=== PATIENT | female | born 1965 | race Caucasian/White ===

== ENCOUNTER → 2016-12-20 | Outpatient (CLI) | payer OTHER ==
--- NOTE | 2016-12-20 15:11 | US ---
EXAMINATION TYPE: US venous doppler duplex LE LT DATE OF EXAM: 12/20/2016 2:15 PM COMPARISON: NONE CLINICAL HISTORY: M79.662 PAIN LLE, R22.42 SWELLING LLE. SIDE PERFORMED: Left Grayscale, color Doppler, spectral Doppler imaging performed of the deep veins of the left lower extr emity. There is normal compressibility of the visualized deep veins of the left lower extremity, vasc ular waveforms are within normal limits, there is color flow. TECHNOLOGIST IMPRESSION: Morbidly obese patient with severe leg pain Left Leg: Negative for DVT exam somewhat limited due to obesity. IMPRESSION: No deep venous thrombosis is evident, the exam could be somewhat limited by patient body habitus, follow-up as indicated.
== END ==
LOC: RADUSWWP 13:39
PROVIDERS: ATTEND Internal Medicine
DX: M79.662 Pain in left lower leg (principal); M79.89 Other specified soft tissue disorders

== ENCOUNTER → 2018-10-08 | Outpatient (CLI) | payer OTHER ==
--- NOTE | 2018-10-08 10:53 | CT ---
EXAMINATION TYPE: CT abdomen wo con DATE OF EXAM: 10/08/2018 HISTORY: Left sided generalized abdominal pain CT DLP: 1306.8 mGycm. Automated Exposure Control for Dose Reduction was Utilized. TECHNIQUE: CT scan of the abdomen is performed with oral but without IV contrast. COMPARISON: NONE FINDINGS: Within the limitations of a non-contrast study, the following observations are made. LUNG BASES: No significant abnormality is appreciated. LIVER/GB: Liver is low dense relative to spleen consistent with diffuse fatty infiltration. PANCREAS: No significant abnormality is seen. SPLEEN: No significant abnormality is seen. ADRENALS: No significant abnormality is seen. KIDNEYS: There is 1.5 cm exophytic simple appearing cyst anterolaterally mid to lower pole level righ t kidney axial image 38. BOWEL: Oral contrast does not reach colonic level. There is no suspicious small or large bowel dilata tion LYMPH NODES: No greater than 1cm abdominal lymph nodes are appreciated. OSSEOUS STRUCTURES: Some facet arthropathy in visualized lower lumbar spine is seen. OTHER: There is mild to moderate calcified plaque of the distal abdominal aorta extending to iliac br anch vessels. There is tiny fat-containing right periumbilical hernia axial image 51. IMPRESSION: No renal stones or hydronephrosis is seen bilaterally. No suspicious acute findings seen on noncontrast CT to account for patient's symptoms.
== END ==
LOC: RADCTMAIN 08:17
PROVIDERS: ATTEND Family Medicine
DX: R10.84 Generalized abdominal pain (principal); Z91.040 Latex allergy status
CPT/HCPCS: 74150

== ENCOUNTER 2019-04-03 12:13 | Inpatient (IN) | payer OTHER ==
[2019-04-03] MEDS ORDERED: methylPREDNISolone SOD SUCCI 125 MG/2 ML VIAL IV STA (14:01)
[2019-04-03] MEDS ORDERED: IPRATROPIUM-ALBUTEROL 3 ML NEB INHALATION PRN (14:01)
[2019-04-03] MEDS ORDERED: LORazepam 1 MG TAB PO PRN (14:08)
[2019-04-03] MEDS ORDERED: DICYCLOMINE 10 MG CAP PO PRN (14:08)
[2019-04-03] MEDS: SODIUM CHLORIDE 0.9% 1,000 ML IV SCH (14:16)
[2019-04-03] MEDS: AZITHROMYCIN 500 MG TAB PO SCH (14:30)
[2019-04-03] MEDS: LISINOPRIL 10 MG TAB PO SCH ×2 (14:30→14:54)
[2019-04-03] MEDS: DULoxetine HCL 60 MG CAPSULE.DR PO SCH ×2 (14:30→14:53)
[2019-04-03] MEDS: LINAGLIPTIN 5 MG TABLET PO SCH (14:54)
[2019-04-03] MEDS: INSULIN ASPART (NovoLOG) 100 UNIT/ML VIAL SQ SCH ×3 (14:55→21:47)
[2019-04-03 15:07] VITALS: BMI 49.0
[2019-04-03] MEDS ORDERED: PNEUMOCOCCAL VACC-PNEUMOVAX 23 25 MCG/0.5 ML VIAL IM ONE (15:10)
[2019-04-03] MEDS: IPRATROPIUM-ALBUTEROL 3 ML NEB INHALATION SCH ×2 (15:27→21:09)
[2019-04-03 16:59] LABS: Glucose,Whole Blood 195 mg/dL (75-99)
[2019-04-03] MEDS: metFORMIN 500 MG TAB PO SCH (17:04)
[2019-04-03] MEDS: methylPREDNISolone SOD SUCCI 125 MG/2 ML VIAL IV SCH (17:29)
[2019-04-03] MEDS ORDERED: SYMBICORT 160-4.5 MCG INHALER INHALATION SCH (20:00)
[2019-04-03 20:39] LABS: Basophils # (A) 0.1 k/uL (0-0.2); Basophils % (A) 0 %; Eosinophils % (A) 0 %; HCT 38.4 % (34.0-46.0); HGB 12.8 gm/dL (11.4-16.0); Lymphocytes # (A) 0.7 k/uL (1.0-4.8); Lymphocytes % (A) 5 %; MCH 30.7 pg (25.0-35.0); MCHC 33.4 g/dL (31.0-37.0); MCV 91.9 fL (80.0-100.0); Mean Platelet Volume 8.8; Monocytes # (A) 0.4 k/uL (0-1.0); Monocytes % (A) 3 %; Neutrophils # (A) 13.1 k/uL (1.3-7.7); Neutrophils % (A) 92 %; Platelet Count 209 k/uL (150-450); RBC 4.18 m/uL (3.80-5.40); RDW 14.1 % (11.5-15.5); WBC 14.3 k/uL (3.8-10.6)
[2019-04-03 20:52] LABS: Calcium 9.6 mg/dL (8.4-10.2); Potassium 4.4 mmol/L (3.5-5.1)
[2019-04-03] MEDS: BUDESONIDE 0.5 MG/2 ML NEBU INHALATION PRN (21:10)
[2019-04-03 21:17] LABS: Glucose,Whole Blood 341 mg/dL (75-99)
[2019-04-03] MEDS: ATORVASTATIN 10 MG TAB PO SCH (21:47)
[2019-04-03] MEDS: FAMOTIDINE 20 MG TAB PO SCH (21:47)
[2019-04-03] MEDS: buPROPion XL 150 MG TAB.ER.24H PO SCH (21:47)
[2019-04-04] MEDS ORDERED: ACETAMINOPHEN TAB 325 MG TAB PO PRN (05:14)
[2019-04-04] MEDS: LISINOPRIL 10 MG TAB PO SCH (05:27)
[2019-04-04] MEDS: methylPREDNISolone SOD SUCCI 125 MG/2 ML VIAL IV SCH ×5 (05:36→23:18)
[2019-04-04 07:20] LABS: Glucose,Whole Blood 278 mg/dL (75-99)
[2019-04-04] MEDS: IPRATROPIUM-ALBUTEROL 3 ML NEB INHALATION SCH ×4 (07:36→20:48)
[2019-04-04] MEDS: BUDESONIDE 0.5 MG/2 ML NEBU INHALATION PRN (07:36)
[2019-04-04] MEDS: buPROPion XL 150 MG TAB.ER.24H PO SCH ×2 (08:01→19:53)
[2019-04-04] MEDS: NICOTINE 21MG/24HR PATCH TRANSDERM SCH (08:01)
[2019-04-04] MEDS: INSULIN ASPART (NovoLOG) 100 UNIT/ML VIAL SQ SCH ×4 (08:01→22:03)
[2019-04-04] MEDS: FAMOTIDINE 20 MG TAB PO SCH ×2 (08:02→19:53)
[2019-04-04] MEDS: AZITHROMYCIN 500 MG TAB PO SCH (08:02)
[2019-04-04] MEDS: LINAGLIPTIN 5 MG TABLET PO SCH (08:02)
[2019-04-04] MEDS: metFORMIN 500 MG TAB PO SCH ×2 (08:02→17:50)
[2019-04-04] MEDS: DULoxetine HCL 60 MG CAPSULE.DR PO SCH (08:02)
[2019-04-04 10:24] LABS: Basophils # (A) 0.1 k/uL (0-0.2); Basophils % (A) 0 %; Eosinophils % (A) 0 %; HCT 39.9 % (34.0-46.0); Lymphocytes # (A) 1.3 k/uL (1.0-4.8); Lymphocytes % (A) 6 %; MCH 30.3 pg (25.0-35.0); MCHC 32.6 g/dL (31.0-37.0); MCV 92.9 fL (80.0-100.0); Mean Platelet Volume 9.3; Monocytes # (A) 0.4 k/uL (0-1.0); Monocytes % (A) 2 %; Neutrophils % (A) 91 %; Platelet Count 253 k/uL (150-450); RDW 14.1 % (11.5-15.5); WBC 21.8 k/uL (3.8-10.6)
[2019-04-04 10:43] LABS: Calcium 9.8 mg/dL (8.4-10.2); Potassium 4.4 mmol/L (3.5-5.1)
[2019-04-04 11:57] LABS: Glucose,Whole Blood 305 mg/dL (75-99)
--- NOTE | 2019-04-04 13:02 | P.HPIM ---
History of Present Illness H&P Date: 04/03/19 Chief Complaint: Worsening shortness of breath This is a 53-year-old female with history of COPD, diabetes mellitus, gastroesophageal reflux disease, hypertension, hyperlipidemia, osteoarthritis, diabetes mellitus, neuropathy with gait dysfunction, chronic back pain, anxiety, depression, ongoing nicotine dependence, admitted directly from PCPs office related to acute COPD exacerbation, failed outpatient treatment. Patient had followed up with PCP last week received prescriptions for antibiotics as well as prednisone taper. Pharmacy did not have prednisone available until Monday. Breathing continue to worsen, returned to PCPs office received IM Rocephin and Depo-Medrol. Worsening of respiratory status, patient was directly admitted to hospital. On admission, afebrile, maintaining O2 sats of 95% on room air, shallow breathing, VSS. Denies chest pain, palpitations. Denies fever or chills. Denies lightheadedness dizziness or focal deficits. Denies nausea, vomiting or diarrhea. Denies abdominal pain. IV antibiotics of Rocephin, Zithromax initiated in addition to Nebulized bronchodilators, Pulmicort, IV steroids, insulin sliding scale as well as home med regimen. Review of Systems ROS Statement: Those systems with pertinent positive or pertinent negative responses have been documented in the HPI. ROS Other: All systems not noted in ROS Statement are negative. Past Medical History - Past Family History Father Family Medical History: Diabetes Mellitus Mother Additional Family Medical History / Comment(s): Mother of "broken heart". Medications and Allergies Home Medications Medication Instructions Recorded Confirmed Type Budesonide [Pulmicort] 0.5 mg INHALATION RT-BID PRN 04/03/19 04/03/19 History Clarithromycin [Biaxin] 500 mg PO BID 04/03/19 04/03/19 History DULoxetine HCL [Cymbalta] 60 mg PO DAILY 04/03/19 04/03/19 History Dicyclomine [Bentyl] 10 mg PO ACHS PRN 04/03/19 04/03/19 History Ipratropium-Albuterol Nebulize 3 ml INHALATION RT-QID PRN 04/03/19 04/03/19 History [Duoneb 0.5 mg-3 mg/3 ml Soln] LORazepam [Ativan] 1 mg PO DAILY PRN 04/03/19 04/03/19 History Lisinopril [Zestril] 10 mg PO DAILY 04/03/19 04/03/19 History Ranitidine HCl 150 mg PO BID 04/03/19 04/03/19 History Simvastatin [Zocor] 20 mg PO HS 04/03/19 04/03/19 History buPROPion XL [Wellbutrin Xl] 150 mg PO BID 04/03/19 04/03/19 History metFORMIN HCL [Glucophage] 500 mg PO BID 04/03/19 04/03/19 History predniSONE 5 mg PO DAILY 04/03/19 04/03/19 History sitaGLIPtin [Januvia] 100 mg PO DAILY 04/03/19 04/03/19 History Allergies Allergy/AdvReac Type Severity Reaction Status Date / Time Latex, Natural Rubber Allergy Anaphylaxis Verified 04/03/19 13:44 Physical Exam Vitals: Intake and Output 04/02/19 04/03/19 04/03/19 22:59 06:59 14:59 Other: Weight 133.6 kg PHYSICAL EXAM: VITAL SIGNS: As above GENERAL: Sitting up in bed, alert and oriented 3, respiratory effort increased HEENT: Conjunctivae normal. eyes normal. Oral mucosa moist NECK: No JVD. No thyroid enlargement. No LNs CARDIOVASCULAR: S1, S2 regular.. No murmur RESPIRATION: Breath sounds diminished in the bases. Scattered rhonchi with fine crackles. Prolonged expiratory wheezing ABDOMEN: Soft, nontender . No guarding. no masses palpable. Bowel sounds heard. LEGS: No edema. no swelling PSYCHIATRY: Alert and oriented X3, mood and affect normal. NERVOUS SYSTEM: Cranial N 2-12 grossly normal. Moves all 4 limbs. Diffuse weakness ,No focal deficits. Strength and sensation grossly intact.. Skin: no lesions, no rash Lymphatic system. No LN neck axilla or groin. Results CBC & Chem 7: 04/04/19 09:32 04/04/19 09:32 Assessment and Plan Assessment: -Acute COPD exacerbation, failed outpatient treatment -Ongoing nicotine dependence -Gastroesophageal reflux disease -Hyperlipidemia -Hypertension -Diabetes mellitus -Chronic back pain -Degenerative joint disease, uses cane and walker -Anxiety, depression Plan: Continue on current medication regime ,monitoring and symptomatic treatment. Nebulized bronchodilators, Pulmicort, IV steroids, IV antibiotics initiated. Close monitoring of Accu-Cheks. Home meds have been resumed. Sputum culture ordered. Smoking cessation readdressed. GI and DVT prophylaxis ordered. Further recommendations to follow The impression and plan of care has been dictated as directed. : I performed a history and examination of this patient, discussed the same with the dictator. I agree with the dictator's note ,documented as a scribe. Any additional findings or plans will be noted. Intake and: 35 minutes
[2019-04-04] MEDS: INSULIN DETEMIR (LEVEMIR) 100 UNIT/ML SYR SQ SCH (13:03)
--- NOTE | 2019-04-04 13:12 | P.PN ---
Subjective Progress Note Date: 04/04/19 This is a 53-year-old female with history of COPD, diabetes mellitus, gastroesophageal reflux disease, hypertension, hyperlipidemia, osteoarthritis, diabetes mellitus, neuropathy with gait dysfunction, chronic back pain, anxiety, depression, ongoing nicotine dependence, admitted directly from PCPs office r elated to acute COPD exacerbation, failed outpatient treatment. Patient had followed up with PCP last week received prescriptions for antibiotics as well as prednisone taper. Pharmacy did not have prednisone available until Monday. Breathing continue to worsen, returned to PCPs office received IM Rocephin and Depo-Medrol. Worsening of respiratory status, patient was directly admitted to hospital. On admission, afebrile, maintaining O2 sats of 95% on room air, shallow breathing, VSS. Denies chest pain, palpitations. Denies fever or chills. Denies lightheadedness dizziness or focal deficits. Denies nausea, vomiting or diarrhea. Denies abdominal pain. IV antibiotics of Rocephin, Zith romax initiated in addition to Nebulized bronchodilators, Pulmicort, IV steroids, insulin sliding scale as well as home med regimen. 04/04/19 maintained on nebulized bronchodilators, IV steroids and IV antibiotics. Blood sugars [id number]. Occasional nonproductive cough .Sputum culture currently, moderate gram-positive cocci in chains. Afebrile, WBC 21.8. Maintaining O2 sats in the mid 90s on room air. Creatinine down to 1.03. Denies chest pain, palpitations. Objective - Vital Signs Vital signs: Vital Signs Temp 98.2 F 04/04/19 05:10 Pulse 99 04/04/19 11:38 Resp 18 04/04/19 05:10 BP 153/93 04/04/19 05:10 Pulse Ox 95 04/04/19 05:10 Intake & Output 04/03/19 04/04/19 04/04/19 18:59 06:59 18:59 Weight 133.6 kg Other: Voiding Method Toilet # Voids 1 1 - Exam VITAL SIGNS: As above GENERAL: Sitting up in bed, alert and oriented 3, respiratory effort increased HEENT: Conjunctivae normal. eyes normal. Oral mucosa moist NECK: No JVD. No thyroid enlargement. No LNs CARDIOVASCULAR: S1, S2 regular.. No murmur RESPIRATION: Breath sounds diminished in the bases. Scattered rhonchi with improving expiratory wheezing ABDOMEN: Soft, nontender . No guarding. no masses palpable. Bowel sounds heard. LEGS: No edema. no swelling PSYCHIATRY: Alert and oriented X3, mood and affect normal. NERVOUS SYSTEM: Cranial N 2-12 grossly normal. Moves all 4 limbs. Diffuse weakness ,No focal deficits. Strength and sensation grossly intact.. Skin: no lesions, no rash - Labs CBC & Chem 7: 04/04/19 09:32 04/04/19 09:32 Labs: Abnormal Lab Results - Last 24 Hours (Table) 04/03/19 04/03/19 04/03/19 Range/Units 16:52 20:29 20:29 WBC 14.3 H (3.8-10.6) k/uL Neutrophils # 13.1 H (1.3-7.7) k/uL Lymphocytes # 0.7 L (1.0-4.8) k/uL Sodium 136 L (137-145) mmol/L Carbon Dioxide (22-30) mmol/L BUN 19 H (7-17) mg/dL Creatinine 1.14 H (0.52-1.04) mg/dL Glucose 330 H (74-99) mg/dL POC Glucose (mg/dL) 195 H (75-99) mg/dL 04/03/19 04/04/19 04/04/19 Range/Units 20:34 07:06 09:32 WBC 21.8 H (3.8-10.6) k/uL Neutrophils # 20.0 H (1.3-7.7) k/uL Lymphocytes # (1.0-4.8) k/uL Sodium (137-145) mmol/L Carbon Dioxide (22-30) mmol/L BUN (7-17) mg/dL Creatinine (0.52-1.04) mg/dL Glucose (74-99) mg/dL POC Glucose (mg/dL) 341 H 278 H (75-99) mg/dL 04/04/19 04/04/19 Range/Units 09:32 11:44 WBC (3.8-10.6) k/uL Neutrophils # (1.3-7.7) k/uL Lymphocytes # (1.0-4.8) k/uL Sodium 136 L (137-145) mmol/L Carbon Dioxide 19 L (22-30) mmol/L BUN 21 H (7-17) mg/dL Creatinine (0.52-1.04) mg/dL Glucose 353 H (74-99) mg/dL POC Glucose (mg/dL) 305 H (75-99) mg/dL Microbiology - Last 24 Hours (Table) 04/03/19 21:18 Sputum Culture - Preliminary Sputum Assessment and Plan Assessment: -Acute COPD exacerbation, failed outpatient treatment. Sputum culture currently, moderate gram-positive cocci in chains -Ongoing nicotine dependence -Gastroesophageal reflux disease -Hyperlipidemia -Hypertension -Diabetes mellitus -Chronic back pain -Degenerative joint disease, uses cane and walker -Anxiety, depression Plan: Continue on current medication regime ,monitoring and symptomatic treatment. Maintain Nebulized bronchodilators, Pulmicort, IV steroids, IV antibiotics. Long actin insulin added to med. regime with close monitoring of Accu-Cheks.Final Sputum culture results pending. Smoking cessation readdressed. Aggressive pulmonary toileting. Increased stimulation as tolerated. The impression and plan of care has been dictated as directed. : I performed a history and examination of this patient, discussed the same with the dictator. I agree with the dictator's note ,documented as a scribe. Any additional findings or plans will be noted. Intake and: 35 minutes
[2019-04-04] MEDS: SODIUM CHLORIDE 0.9% 1,000 ML IV SCH (16:17)
[2019-04-04 16:57] LABS: Glucose,Whole Blood 369 mg/dL (75-99)
[2019-04-04] MEDS: HEPARIN SODIUM,PORCINE 5,000 UNIT/ML 1 ML VIAL SQ SCH ×2 (17:49→23:19)
[2019-04-04] MEDS: ATORVASTATIN 10 MG TAB PO SCH (19:53)
[2019-04-04 22:03] LABS: Glucose,Whole Blood 306 mg/dL (75-99)
[2019-04-05] MEDS: methylPREDNISolone SOD SUCCI 125 MG/2 ML VIAL IV SCH (05:09)
[2019-04-05 07:18] LABS: Glucose,Whole Blood 305 mg/dL (75-99)
[2019-04-05] MEDS: IPRATROPIUM-ALBUTEROL 3 ML NEB INHALATION SCH ×3 (07:27→16:08)
[2019-04-05] MEDS: BUDESONIDE 0.5 MG/2 ML NEBU INHALATION PRN (07:27)
[2019-04-05] MEDS: HEPARIN SODIUM,PORCINE 5,000 UNIT/ML 1 ML VIAL SQ SCH (07:50)
[2019-04-05] MEDS: INSULIN ASPART (NovoLOG) 100 UNIT/ML VIAL SQ SCH ×2 (07:50→12:40)
[2019-04-05] MEDS: NICOTINE 21MG/24HR PATCH TRANSDERM SCH (07:50)
[2019-04-05] MEDS: LISINOPRIL 10 MG TAB PO SCH (07:50)
[2019-04-05] MEDS: buPROPion XL 150 MG TAB.ER.24H PO SCH (07:51)
[2019-04-05] MEDS: FAMOTIDINE 20 MG TAB PO SCH (07:51)
[2019-04-05] MEDS: DULoxetine HCL 60 MG CAPSULE.DR PO SCH (07:51)
[2019-04-05] MEDS: metFORMIN 500 MG TAB PO SCH (07:51)
[2019-04-05] MEDS: LINAGLIPTIN 5 MG TABLET PO SCH (07:51)
[2019-04-05] MEDS: AZITHROMYCIN 500 MG TAB PO SCH (07:51)
[2019-04-05] MEDS: INSULIN DETEMIR (LEVEMIR) 100 UNIT/ML SYR SQ SCH (07:53)
[2019-04-05] MEDS ORDERED: CEFDINIR 300 MG CAP PO SCH (09:00)
[2019-04-05 09:29] LABS: Basophils % (A) 0 %; Eosinophils % (A) 0 %; HCT 37.7 % (34.0-46.0); HGB 11.7 gm/dL (11.4-16.0); Lymphocytes # (A) 0.9 k/uL (1.0-4.8); Lymphocytes % (A) 4 %; MCHC 31.1 g/dL (31.0-37.0); MCV 93.3 fL (80.0-100.0); Mean Platelet Volume 9.6; Monocytes # (A) 0.5 k/uL (0-1.0); Monocytes % (A) 2 %; Neutrophils # (A) 20.6 k/uL (1.3-7.7); Neutrophils % (A) 93 %; Platelet Count 198 k/uL (150-450); RBC 4.05 m/uL (3.80-5.40); RDW 15.7 % (11.5-15.5); WBC 22.1 k/uL (3.8-10.6)
[2019-04-05 09:52] LABS: Calcium 9.5 mg/dL (8.4-10.2); Potassium 4.7 mmol/L (3.5-5.1)
[2019-04-05 12:10] LABS: Glucose,Whole Blood 347 mg/dL (75-99)
--- NOTE | 2019-04-05 14:43 | P.DS ---
Providers Date of admission: 04/03/19 12:56 Expected date of discharge: 04/05/19 Attending physician: Prashant Ward Primary care physician: Prashant Sylvia [facility] Course: Final Diagnoses: -Acute COPD exacerbation, failed outpatient treatment. Sputum culture currently, rare gram-positive cocci in chains, final culture results pending. -Ongoing nicotine dependence -Gastroesophageal reflux disease -Hyperlipidemia -Hypertension -Diabetes mellitus -Chronic back pain -Degenerative joint disease, uses cane and walker -Anxiety, depression Hospital course:This is a 53-year-old female with history of COPD, diabetes mellitus, gastroesophageal reflux disease, hypertension, hyperlipidemia, osteoarthritis, diabetes mellitus, neuropathy with gait dysfunction, chronic back pain, anxiety, depression, ongoing nicotine dependence, admitted directly from PCPs office related to acute COPD exacerbation, failed outpatient treatment. Patient had followed up with PCP last week received prescriptions for antibiotics as well as prednisone taper. Pharmacy did not have prednisone available until Monday. Breathing continue to worsen, returned to PCPs office received IM Rocephin and Depo-Medrol. Worsening of respiratory status, patient was directly admitted to hospital. On admission, afebrile, maintaining O2 sats of 95% on room air, shallow breathing, VSS. Denies chest pain, palpitations. Denies fever or chills. Denies lightheadedness dizziness or focal deficits. Denies nausea, vomiting or diarrhea. Denies abdominal pain. IV antibiotics of Rocephin, Zithromax initiated in addition to Nebulized bronchodilators, Pulmicort, IV steroids, insulin sliding scale as well as home med regimen. 04/04/19 maintained on nebulized bronchodilators, IV steroids and IV antibiotics. Blood sugars [id number]. Occasional nonproductive cough .Sputum culture currently, moderate gram-positive cocci in chains. Afebrile, WBC 21.8. Maintaining O2 sats in the mid 90s on room air. Creatinine down to 1.03. Denies chest pain, palpitations. Completed antibiotic regimen. No wheezing, no rhonchi crackles. Significant clinical improvement. Patient is eager for discharge. Final sputum culture results to be faxed to Dr. Ward's office. Patient is being discharged home in a stable condition with guarded prognosis. Exam GENERAL: alert and oriented 3, no acute distress CARDIOVASCULAR: S1, S2 regular.. No murmur RESPIRATION: Breath sounds diminished in the bases. No rhonchi, no crackles, no wheezing. ABDOMEN: Soft, nontender . No guarding. no masses palpable. Bowel sounds heard. NERVOUS SYSTEM: No focal deficits. The impression and plan of care has been dictated as directed. : I performed a history and examination of this patient, discussed the same with the dictator. I agree with the dictator's note ,documented as a scribe. Any additional findings or plans will be noted. Intake and: 35 minutes Patient Condition at Discharge: Stable Plan - Discharge Summary Discharge Rx Participant: No New Discharge Prescriptions: New Nicotine 21Mg/24Hr Patch [Habitrol] 1 patch TRANSDERM DAILY #30 patch predniSONE 10 mg PO DIRECTED #30 tab Insulin Glargine,Hum.rec.anlog [Basaglar Kwikpen U-100] 30 unit SQ HS #1 syr Continue Budesonide [Pulmicort] 0.5 mg INHALATION RT-BID PRN PRN Reason: Shortness Of Breath buPROPion XL [Wellbutrin XL] 150 mg PO BID Dicyclomine [Bentyl] 10 mg PO ACHS PRN PRN Reason: Gi Upset DULoxetine HCL [Cymbalta] 60 mg PO DAILY Lisinopril [Zestril] 10 mg PO DAILY LORazepam [Ativan] 1 mg PO DAILY PRN PRN Reason: Anxiety metFORMIN HCL [Glucophage] 500 mg PO BID Ranitidine HCl 150 mg PO BID Simvastatin [Zocor] 20 mg PO HS sitaGLIPtin [Januvia] 100 mg PO DAILY predniSONE 5 mg PO DAILY #0 Changed Ipratropium-Albuterol Nebulize [Duoneb 0.5 mg-3 mg/3 ml Soln] 3 ml INHALATION RT-QID #0 Discontinued Clarithromycin [Biaxin] 500 mg PO BID Discharge Medication List Budesonide [Pulmicort] 0.5 mg INHALATION RT-BID PRN 04/03/19 [History] DULoxetine HCL [Cymbalta] 60 mg PO DAILY 04/03/19 [History] Dicyclomine [Bentyl] 10 mg PO ACHS PRN 04/03/19 [History] LORazepam [Ativan] 1 mg PO DAILY PRN 04/03/19 [History] Lisinopril [Zestril] 10 mg PO DAILY 04/03/19 [History] Ranitidine HCl 150 mg PO BID 04/03/19 [History] Simvastatin [Zocor] 20 mg PO HS 04/03/19 [History] buPROPion XL [Wellbutrin XL] 150 mg PO BID 04/03/19 [History] metFORMIN HCL [Glucophage] 500 mg PO BID 04/03/19 [History] sitaGLIPtin [Januvia] 100 mg PO DAILY 04/03/19 [History] Insulin Glargine,Hum.rec.anlog [Basaglar Kwikpen U-100] 30 unit SQ HS #1 syr 04/05/19 [Rx] Ipratropium-Albuterol Nebulize [Duoneb 0.5 mg-3 mg/3 ml Soln] 3 ml INHALATION RT-QID #0 04/05/19 [Rx] Nicotine 21Mg/24Hr Patch [Habitrol] 1 patch TRANSDERM DAILY #30 patch 04/05/19 [Rx] predniSONE 5 mg PO DAILY #0 04/05/19 [Rx] predniSONE 10 mg PO DIRECTED #30 tab 04/05/19 [Rx] Follow up Appointment(s)/Referral(s): Prashant Ward Jr, [Primary Care Provider] - 04/08/19 (Please schedule appointment prior to discharge) Ambulatory/Diagnostic Orders: Complete Blood Count w/diff [LAB.AMB] Time Frame: 3 Days, Location: None Selected Patient Instructions/Handouts: Viral Pneumonia (DC), Type 2 Diabetes in Adults: New Diagnosis (DC) Activity/Diet/Wound Care/Special Instructions: Final sputum culture results to be faxed to Dr. Ward's office. Diet: Consistent carb Accu-Cheks before meals and at bedtime Activity: Limited until follow up
[2019-04-05 15:15] VITALS: BP 150/93; PULSE 101; RESP 18; TEMP 97.8
[2019-04-05] MEDS: SODIUM CHLORIDE 0.9% 1,000 ML IV SCH (15:34)
[2019-04-05] MEDS ORDERED: methylPREDNISolone SOD SUCCI 40 MG/ML 1 ML VIAL IV SCH (16:00)
[2019-04-06 00:39] LABS: Hemoglobin A1C 8.2 % (4.0-6.0)
== END 2019-04-05 16:54 | disposition home or self-care (01) | DRG 192 ==
LOC: 4MS4W 12:56
PROVIDERS: ADMIT Family Medicine; ATTEND Family Medicine
PROC: 3E0234Z Introduction of Serum, Toxoid and Vaccine into Muscle, Percutaneous Approach (ICD-10-PCS; principal; 2019-04-03)
DX: J44.1 Chronic obstructive pulmonary disease with (acute) exacerbation (principal); E11.40 Type 2 diabetes mellitus with diabetic neuropathy, unspecified; E78.5 Hyperlipidemia, unspecified; F17.210 Nicotine dependence, cigarettes, uncomplicated; F32.9 Major depressive disorder, single episode, unspecified; F41.9 Anxiety disorder, unspecified; G89.29 Other chronic pain; M54.9 Dorsalgia, unspecified; R26.9 Unspecified abnormalities of gait and mobility; I10 Essential (primary) hypertension; K21.9 Gastro-esophageal reflux disease without esophagitis; M19.90 Unspecified osteoarthritis, unspecified site; Z79.52 Long term (current) use of systemic steroids; Z79.84 Long term (current) use of oral hypoglycemic drugs; Z79.899 Other long term (current) drug therapy; Z83.3 Family history of diabetes mellitus; Z91.040 Latex allergy status; Z23 Encounter for immunization
CPT/HCPCS: 80048; 83036; 85025; 87070; 87205; 90732; 94640

== ENCOUNTER → 2019-07-16 | Outpatient (CLI) | payer OTHER ==
--- NOTE | 2019-07-16 14:13 | US ---
EXAMINATION TYPE: US venous doppler duplex UE RT DATE OF EXAM: 07/16/2019 COMPARISON: NONE CLINICAL HISTORY: Pain Rt Arm M79.621. Pain posterior upper right arm x weeks; no swelling observed b y US technologist SIDE PERFORMED: right Grayscale, color doppler, spectral doppler imaging performed of the deep veins of the right upper ext remity. There is normal flow, compressibility and vascular waveforms. Right Arm: Negative for DVT. At patient's area of pain posterior at right upper arm palpable a solid hyperechoic oval mass is noted (typical lipoma appearance by US) and size =1.3 x 0.9 x 0.6cm. IMPRESSION: 1. No sonographic evidence of deep venous thrombosis within the right upper extremity. 2. In the area of palpable abnormality there is a 1.3 cm hyperechoic mass that has a typical appearan ce of a lipoma sonographically. If there is growth of this suspected lipomatous lesion clinically MRI with contrast could be performed.
== END | disposition home or self-care (01) ==
LOC: RADUSWWP 13:12
PROVIDERS: ATTEND Family Medicine
DX: D17.21 Benign lipomatous neoplasm of skin and subcutaneous tissue of right arm (principal)

== ENCOUNTER → 2019-08-15 | Outpatient (CLI) | payer OTHER ==
--- NOTE | 2019-08-16 13:25 | MM ---
Reason for exam: screening (asymptomatic). Last mammogram was performed 9 years and 7 months ago. History: Patient is postmenopausal and has history of other cancer at age 27. Physical Findings: A clinical breast exam by your physician is recommended on an annual basis and results should be correlated with mammographic findings. MG Screening Mammo w CAD Bilateral CC and MLO view(s) were taken. Prior study comparison: January 14, 2010, bilateral digital screening mammogram. January 12, 2007, bilateral screening mammogram w/CAD. There are scattered fibroglandular densities. There is no discrete abnormality. ASSESSMENT: Negative, BI-RAD 1 RECOMMENDATION: Routine screening mammogram of both breasts in 1 year.
== END | disposition home or self-care (01) ==
LOC: RADMAMWWP 13:37
PROVIDERS: ATTEND Family Medicine
DX: Z12.31 Encounter for screening mammogram for malignant neoplasm of breast (principal)
CPT/HCPCS: 77067

== ENCOUNTER 2023-01-27 07:55 | Day surgery (SDC) | payer MEDICARE, OTHER ==
[~2023-01-27 07:55] MED LIST: LACTATED RINGERS 1,000 ML IV SCH
[2023-01-27 08:29] VITALS: TEMP 97.4
[2023-01-27 08:36] LABS: Glucose,Whole Blood 144 mg/dL (70-110)
[2023-01-27] MEDS ORDERED: LIDOCAINE 2% INJ 20 MG/ML (2 ML VIAL) ONE (09:09)
[2023-01-27] MEDS ORDERED: PROPOFOL 10 MG/ML 20 ML VIAL IV ONE (09:09)
--- NOTE | 2023-01-27 09:24 | P.PCN ---
Date of Procedure: 01/27/23 Procedure(s) Performed: BRIEF HISTORY: Patient is a 58-year-old pleasant white female scheduled for an elective colonoscopy as a part of screening for colon cancer. PROCEDURE PERFORMED: Colonoscopy. PREOPERATIVE DIAGNOSIS: Screening for colon cancer. IV sedation per Anesthesia. PROCEDURE: After informed consent was obtained, the patient, was brought into the endoscopy unit. IV sedation was administered by Anesthesia under continuous monitoring. Digital rectal examination was normal. Initially the Olympus CF-160 flexible video colonoscope was then inserted in the rectum, gradually advanced into the cecum without any difficulty. Careful examination was performed as the scope was gradually being withdrawn. Ileocecal valve and the appendiceal orifice were visualized and appeared normal. Prep was excellent. Mucosa of the cecum, ascending colon, transverse colon, descending colon, sigmoid colon, and rectum appeared normal. Retroflexion was performed in the rectum and small internal hemorrhoids were seen. The patient tolerated the procedure well. IMPRESSION: Normal-appearing colon from rectum to cecum with no evidence of colorectal neoplasia . Small internal hemorrhoids. RECOMMENDATIONS: Findings of this examination were discussed with the patient as well as a family. She was advised to have a repeat screening colonoscopy in 10 years.
[2023-01-27 09:37] VITALS: RESP 16
[2023-01-27 10:02] VITALS: BP 129/74; PULSE 92
== END 2023-01-27 10:09 | disposition home or self-care (01) ==
LOC: ORWHC2ENDO 07:55
PROVIDERS: ATTEND Internal Medicine Gastroenterology
DX: Z12.11 Encounter for screening for malignant neoplasm of colon (principal); K64.8 Other hemorrhoids; I10 Essential (primary) hypertension; E78.5 Hyperlipidemia, unspecified; J44.9 Chronic obstructive pulmonary disease, unspecified; F12.90 Cannabis use, unspecified, uncomplicated; E11.40 Type 2 diabetes mellitus with diabetic neuropathy, unspecified; Z79.84 Long term (current) use of oral hypoglycemic drugs; Z79.51 Long term (current) use of inhaled steroids; Z79.899 Other long term (current) drug therapy; Z98.890 Other specified postprocedural states; Z72.0 Tobacco use
CPT/HCPCS: J2704; J2001; G0121

== ENCOUNTER → 2023-12-20 | Outpatient (CLI) | payer MEDICARE, OTHER ==
--- NOTE | 2023-12-20 22:13 | MM ---
Reason for Exam: Screening (asymptomatic). Last mammogram was performed 4 year(s) and 4 month(s) ago. Patient History: Menarche at age 11. First Full-Term at age 19. Left ovary removed at age 27. Right ovary removed at age 27. Hysterectomy at age 27. Postmenopausal. Patient has history of breast feeding. Risk Values: Melony 5 year model risk: 1.2%. NCI Lifetime model risk: 6.7%. Prior Study Comparison: 01/12/2007 Bilateral Screening Mammogram, [facility]. 01/14/2010 Bilateral Screening Mammogram, [facility]. 08/15/2019 Bilateral Screening Mammogram, [facility]. Tissue Density: There are scattered fibroglandular densities. Findings: Analyzed By CAD. The pattern is symmetrical. There is a small nodular density 6:00 posterior position right breast. This is new when has indistinct margins. This is measures 0.7 cm is located 13 cm from the nipple. Ultrasound is recommended for additional evaluation. Left breast:No suspicious groups of microcalcifications, spiculated or lobular masses, architectural distortion or other secondary signs of malignancy are mammographically apparent. Overall Assessment: Incomplete: need additional imaging evaluation, BI-RAD 0 Management: Diagnostic Breast Ultrasound of the right breast. A negative mammogram report should not preclude additional follow up of suspicious palpable abnormalities. Patient should continue monthly self breast exam. A clinical breast exam by your physician is recommended on an annual basis and results should be correlated with mammographic findings. Electronically signed and approved by: Vin Gonzalez D.O. Radiologis
== END | disposition home or self-care (01) ==
LOC: RADMAMWWP 09:11
PROVIDERS: ATTEND Family Medicine
DX: Z12.31 Encounter for screening mammogram for malignant neoplasm of breast (principal); Z78.0 Asymptomatic menopausal state
CPT/HCPCS: 77067

== ENCOUNTER → 2023-12-27 | Outpatient (CLI) | payer MEDICARE ==
--- NOTE | 2023-12-27 10:35 | USB ---
Reason for Exam: Additional evaluation requested from abnormal screening. Patient History: Menarche at age 11. First Full-Term at age 19. Left ovary removed at age 27. Right ovary removed at age 27. Hysterectomy at age 27. Postmenopausal. Patient has history of breast feeding. Risk Values: Melony 5 year model risk: 1.2%. NCI Lifetime model risk: 6.7%. Technique: Method: Targeted. Prior Study Comparison: 01/14/2010 Bilateral Screening Mammogram, [facility]. 08/15/2019 Bilateral Screening Mammogram, [facility]. 12/20/2023 Bilateral MG screening mammo w CAD, [facility]. Findings: The lower section of the breast of the right breast, the axilla of the right breast and the retroareolar of the right breast were scanned. Hypoechoic lesion at the right 6:00 position 5 cm from the nipple measuring 0.7 x 0.6 cm. Tissue diagnosis is recommended. Borderline thickened right axillary lymph node with the cortical thickening of 0.35 cm. Overall Assessment: Suspicious, BI-RAD 4 Management: Ultrasound Core Biopsy of the right breast. A clinical breast exam by your physician is recommended on an annual basis and results should be correlated with mammographic findings. This exam should not preclude additional follow-up of suspicious palpable abnormalities. Results were given to the patient verbally at the time of exam. Electronically signed and approved by: Brannon Esteves M.D. Radiologis
== END | disposition home or self-care (01) ==
LOC: RADUSWWP 09:56
PROVIDERS: ATTEND Family Medicine
DX: R92.8 Other abnormal and inconclusive findings on diagnostic imaging of breast (principal); Z78.0 Asymptomatic menopausal state

== ENCOUNTER → 2024-01-03 | Day surgery (SDC) | payer MEDICARE ==
--- NOTE | 2024-01-08 13:46 | MM ---
Reason for Exam: Post Procedure Mammogram. Last screening mammogram was performed less than 1 month ago. Patient History: Menarche at age 11. First Full-Term at age 19. Left ovary removed at age 27. Right ovary removed at age 27. Hysterectomy at age 27. Postmenopausal. Patient has history of breast feeding. Risk Values: Melony 5 year model risk: 1.2%. NCI Lifetime model risk: 6.7%. Prior Study Comparison: 01/14/2010 Bilateral Screening Mammogram, [facility]. 08/15/2019 Bilateral Screening Mammogram, [facility]. 12/20/2023 Bilateral MG screening mammo w CAD, [facility]. 12/27/2023 Right US breast workup limited RT, [facility]. Tissue Density: Right: There are scattered areas of fibroglandular density. Pathology Description: Location: 6 o'clock, posterior. Marker Left Behind. Needle Type: Mammotome Cores: 7 Gauge: 13 The procedure of ultrasound guided core biopsy was explained to the patient. Benefits, alternatives, and risks were discussed. An informed consent was then obtained. The 6:00 hypoechoic area 5 cm from the nipple is identified and targeted for biopsy. The patient was placed in supine positioning for imaging and for the procedure. The overlying skin was prepped and draped in usual sterile fashion. Lidocaine was used as anesthetic into the skin and subcutaneous tissue up to area of concern in the 6:00 right breast. Under ultrasound guidance, a 13-gauge vacuum-assisted mammotome Elite biopsy gun was used to obtain 7 core samples. Following this, a coil clip was deposited at the site of biopsy. Note just under 1 cm, inadvertent clip migration. The patient tolerated the procedure well without any immediate complication. The patient was kept in the radiology department for short stay after the procedure and then discharged home in stable condition. Postprocedure mammogram: The patient was transferred to mammography for physician ordered post procedure mammogram for clip placement verification. The coil clip is noted to be at the 7:00 position posterior depth. Adjacent to but not the mammographic focal asymmetry. On review of the mammogram, there is a vague density corresponding to the presently biopsied site. Recommend awaiting pathology results. Following results, patient will need a second look ultrasound for the more medial 6:00 site, and if no abnormality is detected, stereotactic core needle biopsy can be considered. IMPRESSION: Uncomplicated ultrasound guided core biopsy of an unintended lesion in the right breast. Discrepant from the initially detected mammographic focal asymmetry. The present site of biopsy is at 7:00, located just lateral to the intended mammographic lesion. Upon review of the mammogram, there is a vague density at this present biopsy site. Await pathology results. In addition, patient will need a second look ultrasound for the 6:00 area. If no abnormality is detected, stereotactic core needle biopsy can be considered. Full pathology results to follow. Pathology Results: Result: Malignant, Invasive ductal carcinoma. RIGHT BREAST, 6:00 POSITION, ULTRASOUND GUIDED CORE BIOPSY: Invasive high grade ductal carcinoma, Grade 3 (see surgical pathology cancer case summary and comment). Overall Assessment: Malignant Assessment: MG diagnostic mammo RT wo CAD - Right: Known biopsy proven malignancy, BI-RAD 6. Management: Surgical Consultation of the right breast. Electronically signed and approved by: Zackary Figueroa M.D. Radiologist
== END ==
LOC: RADUSWWP 12:41
PROVIDERS: ATTEND Surgery
DX: C50.811 Malignant neoplasm of overlapping sites of right female breast (principal)
CPT/HCPCS: 88305; 88342; 88341; 77065; 19083; A4648

== ENCOUNTER → 2024-01-25 | Outpatient (CLI) | payer MEDICARE ==
--- NOTE | 2024-01-25 15:13 | MM ---
Reason for Exam: Follow-up at short interval from prior study. Last screening mammogram was performed 2 month(s) ago. Patient History: Menarche at age 11. First Full-Term at age 19. Left ovary removed at age 27. Right ovary removed at age 27. Hysterectomy at age 27. Postmenopausal. Patient has history of breast feeding. Breast cancer, right, age 58. 01/03/2024, Malignant US biopsy breast VAD RT on the right side. Prior Study Comparison: 08/15/2019 Bilateral Screening Mammogram, [facility]. 12/20/2023 Bilateral MG screening mammo w CAD, [facility]. 01/03/2024 Right MG diagnostic mammo RT wo CAD, [facility]. Tissue Density: Right: There are scattered areas of fibroglandular density. Findings: Analyzed By CAD. Clip marker resides within the sampled nodule right breast. No additional suspicious appearing nodules are identified at this time. Therefore ultrasound was not performed. Overall Assessment: Known biopsy proven malignancy, BI-RAD 6 Management: Surgical Consultation of the right breast. . Results were given to the patient verbally at the time of exam. Patient should continue monthly self-breast exams. A clinical breast exam by your physician is recommended on an annual basis. This exam should not preclude additional follow-up of suspicious palpable abnormalities. Note on Melony scores and lifetime risk: 1. A Melony score greater than 3% is considered moderate risk. If this is the case, consider specialist referral to assess eligibility for a risk reducing agent. 2. If overall lifetime risk for the development of breast cancer is 20% or higher, the patient may qualify for future screening with alternating mammogram and breast MRI. Electronically signed and approved by: Brannon Esteves M.D. Radiologis
--- NOTE | 2024-01-26 14:13 | USB ---
Reason for Exam: Follow-up at short interval from prior study. Patient History: Menarche at age 11. First Full-Term at age 19. Left ovary removed at age 27. Right ovary removed at age 27. Hysterectomy at age 27. Postmenopausal. Patient has history of breast feeding. Breast cancer, right, age 58. 01/03/2024, Malignant US biopsy breast VAD RT on the right side. Technique: Method: Targeted. Prior Study Comparison: 08/15/2019 Bilateral Screening Mammogram, [facility]. 12/20/2023 Bilateral MG screening mammo w CAD, [facility]. 01/03/2024 Right MG diagnostic mammo RT wo CAD, [facility]. Findings: The axilla of the right breast was scanned. Right axillary lymph node demonstrates mildly thickened cortex between 0.3 cm and 0.35 cm. Tissue diagnosis is recommended. Overall Assessment: Suspicious, BI-RAD 4 Management: Ultrasound-Guided Core Biopsy of the right breast. A clinical breast exam by your physician is recommended on an annual basis and results should be correlated with mammographic findings. This exam should not preclude additional follow-up of suspicious palpable abnormalities. Results were given to the patient verbally at the time of exam. Electronically signed and approved by: Brannon Esteves M.D. Radiologis
== END | disposition home or self-care (01) ==
LOC: RADUSWWP 14:35
PROVIDERS: ATTEND Surgery
DX: C50.911 Malignant neoplasm of unspecified site of right female breast (principal); Z78.0 Asymptomatic menopausal state
CPT/HCPCS: 77065; 76642; G0279; 77061

== ENCOUNTER → 2024-01-30 | Day surgery (SDC) | payer MEDICARE ==
--- NOTE | 2024-02-06 08:00 | USB ---
Prior Study Comparison: 12/20/2023 Bilateral MG screening mammo w CAD, [facility]. 01/03/2024 Right MG diagnostic mammo RT wo CAD, [facility]. 01/25/2024 Right MG 3D diag mammo w/cad RT, [facility]. Pathology Description: Marker Left Behind. Needle Type: Bard 14g x 10cm Cores: 3 Gauge: 13 post mammogram not done The procedure of ultrasound guided core biopsy was explained to the patient. Benefits, alternatives, and risks were discussed. An informed consent was then obtained. The patient was placed in supine positioning for imaging and for the procedure. The overlying skin was prepped and draped in usual sterile fashion. Lidocaine buffered with bicarbonate was used as anesthetic into the skin and subcutaneous tissue up to area of concern in the right axilla. A vianey was made with surgical scalpel. Under ultrasound guidance, a 12-gauge vacuum assisted biopsy gun device was used to obtain 3 core samples. The patient tolerated the procedure well without any immediate complication. The patient was kept in the radiology department for short stay after the procedure and then discharged home in stable condition. Postprocedure mammogram: The patient was transferred to mammography for physician ordered post procedure mammogram for clip placement verification. Impression: Successful, uncomplicated ultrasound guided core biopsy of area of concern in the right axilla, full pathology results to follow. Pathology Results: Result: Benign, Lymph node. Pathology and radiology were reviewed. Findings are concordant. RIGHT AXILLA LYMPH NODE, CORE BIOPSY: Lymph node negative for metastasis. See note. Notes CK7 and RAVEN immunostains performed on block A1 and evaluated with appropriate positive controls are negative for evidence of metastatic malignancy. The results support the above diagnosis. Overall Assessment: Benign Management: Diagnostic Breast Ultrasound of the right breast in 6 months. Electronically signed and approved by: Brannon Esteves M.D. Radiologis
== END ==
LOC: RADUSWWP 09:47
PROVIDERS: ATTEND Surgery
DX: R92.8 Other abnormal and inconclusive findings on diagnostic imaging of breast (principal); Z85.3 Personal history of malignant neoplasm of breast
CPT/HCPCS: 88305; 88342; 88341; 19083; A4648

== ENCOUNTER → 2024-02-14 | Outpatient (CLI) | payer MEDICARE ==
[2024-02-14 18:10] LABS: HCT 37.8 % (37.2-46.3); HGB 12.4 g/dL (12.0-15.0); MCH 29.9 pg (27.0-32.0); MCHC 32.8 g/dL (32.0-37.0); MCV 91.1 FL (80.0-97.0); NRBC Per 100 WBC 0 X 10*3/uL (0.00-0.01); Platelet Count 207 X 10*3/uL (140-440); RBC 4.15 X 10*6/uL (4.10-5.20); RDW 14.6 % (11.5-14.5); WBC 14.17 X 10*3/uL (4.50-10.00)
== END | disposition home or self-care (01) ==
LOC: LABPAT 14:51
PROVIDERS: ATTEND Surgery
DX: Z01.818 Encounter for other preprocedural examination (principal); I10 Essential (primary) hypertension
CPT/HCPCS: 36415; 85027; 93005

== ENCOUNTER 2024-02-16 07:23 | Day surgery (SDC) | payer MEDICARE ==
[2024-02-14 13:10] VITALS: BMI 51.7
--- NOTE | 2024-02-15 13:12 | P.HPADDEND ---
H&P Addendum H&P Addendum Date: 02/15/24 Please refer to the history and physical faxed from the office on 01/17. Case was discussed at tumor conference recently. She went back for her second look ultrasound and mammogram. She underwent ultrasound core biopsy right axillary lymph node. Pathology from lymph node biopsy negative. After reviewing the patient's mammogram films there was no additional lesions seen. The abnormality that led to the initial workup was no longer visualized. At tumor conference and again with the patient by phone we discussed the option of MRI versus proceeding with surgery at this time. We decided to proceed with right breast lumpectomy with wire localization, sentinel lymph node biopsy/injection at this time. Will plan 6-month follow-up right breast mammogram after completion of surgery and adjuvant radiation. She was seen by both oncology and radiation oncology since her initial visit. Patient is stage Ia.
--- NOTE | 2024-02-15 13:13 | P.NAPBC ---
NAPBC Queries - NAPBC Queries Was patient's case review presented at [facility] tumor board? If no, comment.: Yes Was patient's pathology reviewed at [facility]? If no, comment.: Yes Was breast conservation surgery offered? If no, comment.: Yes Was sentinel node biopsy offered? If no, comment.: Yes Was diagnosis confirmed by percutaneous core biopsy? If no, comment.: Yes Is patient mastectomy patient?: No Was a preop referral to reconstructive surgeon offered?: Yes Clinical Stage: 1a
[~2024-02-16 07:23] MED LIST changes: +HYDROmorphone 0.5 MG/0.5 ML SYRINGE IVP PRN; -LACTATED RINGERS 1,000 ML IV SCH; +LIDOCAINE 1% (10MG/ML) FOR IV START INTRADERMA PRN; +MIDAZOLAM 2 MG/2 ML VIAL IV PRN
[2024-02-16] MEDS: LACTATED RINGERS 1,000 ML IV SCH (07:43)
[2024-02-16] MEDS: ALPRAZolam 0.25 MG TAB ONE (08:00)
[2024-02-16] MEDS: ACETAMINOPHEN TAB 500 MG TAB PO PRN (08:00)
[2024-02-16 08:23] LABS: Glucose,Whole Blood 197 mg/dL (70-110)
[2024-02-16 08:53] VITALS: RESP 16
[2024-02-16] MEDS: LIDOCAINE 1% INJ 10MG/ML (20 ML MDV) SQ ONE (09:15)
[2024-02-16] MEDS: DEXAMETHASONE SOD PHOSPHATE 4 MG/ML 1 ML VIAL IV ONE (11:01)
[2024-02-16] MEDS: ONDANSETRON 4 MG/2 ML VIAL IVP ONE (11:01)
[2024-02-16] MEDS: HEPARIN SODIUM,PORCINE 5,000 UNIT/ML 1 ML VIAL SQ PRN (11:08)
--- NOTE | 2024-02-16 11:48 | NM ---
EXAMINATION TYPE: NM sentinel node injection DATE OF EXAM: 02/16/2024 COMPARISON: NONE CLINICAL INDICATION: Female, 58 years old with history of C50.911 BREAST CANCER; TECHNIQUE AND FINDINGS: The procedure of sentinel lymph node injection was explained to the patient. The benefits, alternatives, and risks were discussed. An informed consent was then obtained. Overlying skin is cleaned with sterile alcohol. Following this, 427 uCi Tc99m Tilmanocept was inject ed in the upper outer aspect of the right nipple intradermally. The patient tolerated the procedure well without any immediate complication. The patient was kept in the radiology department for short stay after the procedure and then taken to surgery for surgical p rocedure what is presumed intraoperative gamma probe will be used for sentinel lymph node detection. IMPRESSION: Right breast radiotracer injection for sentinel node localization as above.
[2024-02-16] MEDS ORDERED: ePHEDrine 50 MG/ML 1 ML VIAL ONE (11:52)
[2024-02-16] MEDS ORDERED: LIDOCAINE 1% INJ 10MG/ML (20 ML MDV) ONE (11:52)
[2024-02-16] MEDS ORDERED: SUCCINYLCHOLINE CHLORIDE 200 MG/10 ML VIAL IV ONE (11:52)
[2024-02-16] MEDS ORDERED: PROPOFOL 10 MG/ML 20 ML VIAL IV ONE (11:52)
[2024-02-16] MEDS ORDERED: fentaNYL (PF) 50 MCG/ML 2 ML AMP ONE (11:52)
[2024-02-16] MEDS ORDERED: LIDOCAINE 4% LTA KIT (4 ML) TOPICAL ONE (11:52)
[2024-02-16] MEDS ORDERED: KETAMINE HCL IN 0.9 % NACL 50 MG/5 ML SYRINGE ONE (11:52)
[2024-02-16] MEDS ORDERED: GLYCOPYRROLATE 0.2 MG/ML 2 ML VIAL ONE (11:52)
[2024-02-16] MEDS ORDERED: MIDAZOLAM 2 MG/2 ML VIAL ONE (11:52)
[2024-02-16] MEDS: ceFAZolin 3 GM in SODIUM CHLORIDE 0.9% 100 ML IVPB PRN (11:57)
[2024-02-16] MEDS: METHYLENE BLUE 50 MG/10 ML AMPUL INJ ONE (12:30)
[2024-02-16] MEDS: BUPIVACAINE (PF) 0.25% 30 ML VIAL SQ ONE (12:30)
--- NOTE | 2024-02-16 13:49 | P.OP ---
Date of Procedure: 02/16/24 Procedure(s) Performed: PREOPERATIVE DIAGNOSIS: Right breast cancer POSTOPERATIVE DIAGNOSIS: Same PROCEDURE: Right Breast wire localization lumpectomy with sentinel lymph node biopsy SURGEON: Mayelin EBL: 20 cc ANESTHESIA: General COMPLICATIONS: None OPERATIVE PROCEDURE: Patient was placed on the operating room table in the supine position. 2 mL of methylene blue was injected into the subareolar space. The breast was then massaged for 5 minutes. The breast was prepped and draped in usual sterile fashion. The right axilla was addressed at that time. The hot spot in the right axilla was identified. A inferior axillary curvilinear incision was made using the scalpel. Dissection down through the subcutaneous tissues took place using electrocautery. Using the neoprobe I identified a total of 4 sentinel lymph nodes. None of these were blue in color. These had benign exam characteristics. These were all removed and sent to pathology for permanent sectioning. The surgical site was inspected and no bleeding was seen. The subcutaneous tissues were closed using 3-0 Vicryl sutures. The skin was closed using 4-0 Monocryl sutures. The wire entrance site was then addressed. There were 2 wires present inferiorly. The more medial wire was the wire going to the ultrasound biopsy site while the lateral wire was at the clip that had migrated. A single lumpectomy specimen took place incorporating the breast tissue around the tip of both wires. The specimen was palpated and no abnormalities were noted. I then painted at the appropriate 6 colors. Interestingly the wire was not present within the specimen. I was able to identify the wire in the breast tissue inferiorly. This was then followed to the tip which was present in the muscle of the pectoralis medially. This was able to be removed. No bleeding was seen at the wire site. Clips were used to identify the lumpectomy specimen site. Irrigation took place and no bleeding was seen. The subcutaneous tissues were closed using 3-0 Vicryl sutures. The skin was closed using a running 4-0 Monocryl stitch. Skin glue was then applied. DISPOSITION: Stable to recovery room
[2024-02-16 14:15] VITALS: TEMP 97
--- NOTE | 2024-02-16 14:39 | USB ---
EXAMINATION TYPE: US breast localization RT, US breast surgical specimen RT, US breast local each add RT, US breast local each add RT DATE OF EXAM: 02/16/2024 10:56 AM COMPARISON: NONE HISTORY: Invasive carcinoma Informed consent was obtained and all the patient's questions were answered. The lesion at 6:00 righ t breast as well as the migrated clip at the 7:00 position were localized sonographically. The standa rd sterile technique was utilized, as well as appropriate local anesthesia with 1% Lidocaine. Localiz ation needle followed by placement of a guidewire was performed under mammographic guidance. The 6:00 lesion was targeted and guidewire placed appropriately with verification sonographic images obtained. During mammographic correlation is was noted that the wire had migrated entirely into the b reast. Subsequently a second wire was placed at the 6:00 position with appropriate positioning confir med sonographically. Prior to mammography a hemostat was placed at the skin entry site so wire migrat ion could occur. Mammographic confirmation mammographic confirmation demonstrates appropriate placeme nt. A third wire was placed at the migrated clip site was confirmed both mammographically and sonogra phically. The patient tolerated the procedure well and left the department in stable condition. Specimen radiograph and sonogram demonstrates the clip and nodule in question to reside within the sp ecimen. 3 wires were also identified. IMPRESSION: Successful needle localization and open biopsy right breast 6:00 lesion and microclip mar ker with pathology results pending
[2024-02-16 14:52] LABS: Glucose,Whole Blood 180 mg/dL (70-110)
[2024-02-16 15:23] LABS: Glucose,Whole Blood 199 mg/dL (70-110)
[2024-02-16 16:24] VITALS: BP 132/79; PULSE 70
[2024-02-16] MEDS ORDERED: ACETAMINOPHEN TAB 325 MG TAB PO SCH (18:00)
[2024-02-18] MEDS ORDERED: MELOXICAM 7.5 MG TAB PO SCH (09:00)
--- NOTE | 2024-02-26 08:43 | MM ---
Reason for Exam: Post Procedure Mammogram. Last screening mammogram was performed 2 month(s) ago. Patient History: Menarche at age 11. First Full-Term at age 19. Left ovary removed at age 27. Right ovary removed at age 27. Hysterectomy at age 27. Postmenopausal. Patient has history of breast feeding. Breast cancer, right, age 58. 01/30/2024, Benign US biopsy breast VAD RT on the right side. 01/03/2024, Malignant US biopsy breast VAD RT on the right side. Prior Study Comparison: 12/20/2023 Bilateral MG screening mammo w CAD, [facility]. 01/03/2024 Right MG diagnostic mammo RT wo CAD, [facility]. 01/25/2024 Right MG 3D diag mammo w/cad RT, [facility]. Tissue Density: Right: There are scattered areas of fibroglandular density. Pathology Description: Location: 7 o'clock. Needle Type: 5 cm Konavid Informed consent was obtained and all the patient's questions were answered. The lesion at 6:00 right breast as well as the migrated clip at the 7:00 position were localized sonographically. The standard sterile technique was utilized, as well as appropriate local anesthesia with 1% Lidocaine. Localization needle followed by placement of a guidewire was performed under mammographic guidance. The 6:00 lesion was targeted and guidewire placed appropriately with verification sonographic images obtained. During mammographic correlation is was noted that the wire had migrated entirely into the breast. Subsequently a second wire was placed at the 6:00 position with appropriate positioning confirmed sonographically. Prior to mammography a hemostat was placed at the skin entry site so wire migration could occur. Mammographic confirmation mammographic confirmation demonstrates appropriate placement. A third wire was placed at the migrated clip site was confirmed both mammographically and sonographically. The patient tolerated the procedure well and left the department in stable condition. Specimen radiograph and sonogram demonstrates the clip and nodule in question to reside within the specimen. 3 wires were also identified. IMPRESSION: Successful needle localization and open biopsy right breast 6:00 lesion and microclip marker with pathology results pending. Pathology Results: Result: Malignant, Invasive ductal carcinoma. Pathology and radiology were reviewed. Findings are concordant. A. SENTINEL LYMPH NODES X4: Five lymph nodes negative for metastasis. CK7 immunostain performed on blocks A1 and A7, RAVEN immunostain performed on blocks A2 and A8, CK AE1/3 immunostain performed on blocks A3 and A9, CAM 5.2 immunostain performed on block A4, MOC 31 immunostain performed on block A5, and EpCam immunostain performed on block A6 are confirmatory (controls appropriate). B. RIGHT BREAST, LUMPECTOMY: Invasive poorly differentiated ductal carcinoma (Grade 3) involving the posterior/inferior margin. Other margins negative for malignancy. Background fibrocystic changes, previous biopsy site and focal flat epithelial atypia not involving the margins. See Surgical Pathology Cancer Case Summary. Overall Assessment: Malignant Assessment: MG diagnostic mammo RT wo CAD - Right: Known biopsy proven malignancy, BI-RAD 6. Management: Surgical Consultation of the right breast. Diagnostic Mammogram of the right breast in 6 months. Electronically signed and approved by: Brannon Esteves M.D. Radiologis
== END 2024-02-16 16:07 | disposition home or self-care (01) ==
LOC: OR 07:23
PROVIDERS: ATTEND Surgery
DX: C50.911 Malignant neoplasm of unspecified site of right female breast (principal); I10 Essential (primary) hypertension; E78.5 Hyperlipidemia, unspecified; J44.9 Chronic obstructive pulmonary disease, unspecified; F17.210 Nicotine dependence, cigarettes, uncomplicated; E11.42 Type 2 diabetes mellitus with diabetic polyneuropathy; F41.9 Anxiety disorder, unspecified; F32.A Depression, unspecified; K21.9 Gastro-esophageal reflux disease without esophagitis; Z78.0 Asymptomatic menopausal state; Z79.899 Other long term (current) drug therapy; Z91.040 Latex allergy status; Z88.8 Allergy status to other drugs, medicaments and biological substances
CPT/HCPCS: 19301; 38525; 88342; 88307; 88341; 77065; 76098; 76999; 19285; 19286; 38792; C1819 ×2; A9520; J2250; J0330; J1644; J1100; J0690; J2405; J2001; J3010; J2704; Q9968; J0665

== ENCOUNTER 2024-03-04 13:09 | Day surgery (SDC) | payer MEDICARE ==
[2024-03-04] MEDS: LACTATED RINGERS 1,000 ML IV ONE (13:51)
[2024-03-04 14:12] LABS: Glucose,Whole Blood 149 mg/dL (70-110)
[2024-03-04] MEDS: HEPARIN SODIUM,PORCINE 5,000 UNIT/ML 1 ML VIAL SQ PRN (14:12)
[2024-03-04] MEDS: ONDANSETRON 4 MG/2 ML VIAL ONE (14:12)
[2024-03-04] MEDS: ACETAMINOPHEN TAB 500 MG TAB PO PRN (14:12)
[2024-03-04] MEDS ORDERED: SUCCINYLCHOLINE CHLORIDE 200 MG/10 ML VIAL IV ONE (15:19)
[2024-03-04] MEDS ORDERED: MIDAZOLAM 2 MG/2 ML VIAL ONE (15:19)
[2024-03-04] MEDS ORDERED: PHENYLEPHRINE-0.9% NACL SYG 1,000 MCG/10 ML SYRINGE ONE (15:19)
[2024-03-04] MEDS ORDERED: PROPOFOL 10 MG/ML 20 ML VIAL IV ONE (15:19)
[2024-03-04] MEDS ORDERED: KETAMINE HCL IN 0.9 % NACL 50 MG/5 ML SYRINGE ONE (15:19)
[2024-03-04] MEDS ORDERED: GLYCOPYRROLATE 0.2 MG/ML 2 ML VIAL ONE (15:19)
[2024-03-04] MEDS ORDERED: fentaNYL (PF) 50 MCG/ML 2 ML AMP ONE (15:19)
[2024-03-04] MEDS ORDERED: LIDOCAINE 1% INJ 10MG/ML (20 ML MDV) ONE (15:19)
[2024-03-04] MEDS: BUPIVACAINE (PF) 0.25% 30 ML VIAL SQ ONE (15:24)
[2024-03-04] MEDS: ceFAZolin 3 GM in SODIUM CHLORIDE 0.9% 100 ML IVPB PRN (15:24)
--- NOTE | 2024-03-04 16:47 | P.OP ---
Date of Procedure: 03/04/24 Procedure(s) Performed: PREOPERATIVE DIAGNOSIS: Right breast cancer, right axillary seroma POSTOPERATIVE DIAGNOSIS: Same PROCEDURE: Right Breast relumpectomy, aspiration right axillary seroma SURGEON: Mayelin BURGERL: Ranjit quintero ANESTHESIA: General COMPLICATIONS: None OPERATIVE PROCEDURE: Patient was placed on the operating room table in the supine position. After using an alcohol swab a 18-gauge needle was used to evacuate 8 cc of clear yellow fluid from the right axilla. The breast was then prepped and draped sterilely. The previous incision in the lower outer aspect of the breast was excised. The subcutaneous lumpectomy cavity was entered bluntly. Serous fluid was evacuated. The previous Vicryl sutures were removed. The previous lumpectomy pathology report showed positive margins posteriorly and inferiorly. Given the orientation of the lumpectomy in this case I decided to remove circumferentially the lumpectomy cavity at the depth of the cancer. I painted the entire outer aspect of the lumpectomy cavity that was reexcised purple in color. Technically we would have all margins reexcised with the exception of the anterior margin. This was sent to pathology in formalin. Surgicel powder was used. Clips were used again. Subcutaneous tissues were closed using 3-0 Vicryl sutures. The skin was closed using a running 4-0 Monocryl stitch. Skin glue was then applied. DISPOSITION: Stable to recovery room
[2024-03-04 17:56] VITALS: TEMP 97.3
[2024-03-04 18:00] LABS: Glucose,Whole Blood 138 mg/dL (70-110)
[2024-03-04 18:38] VITALS: BP 114/70; PULSE 74; RESP 17
== END 2024-03-04 18:33 | disposition home or self-care (01) ==
LOC: OR 13:09
PROVIDERS: ATTEND Surgery
DX: N64.89 Other specified disorders of breast (principal); I10 Essential (primary) hypertension; E78.5 Hyperlipidemia, unspecified; J44.9 Chronic obstructive pulmonary disease, unspecified; E11.42 Type 2 diabetes mellitus with diabetic polyneuropathy; M19.90 Unspecified osteoarthritis, unspecified site; F41.9 Anxiety disorder, unspecified; F32.A Depression, unspecified; F12.90 Cannabis use, unspecified, uncomplicated; F17.210 Nicotine dependence, cigarettes, uncomplicated; K21.9 Gastro-esophageal reflux disease without esophagitis; Z79.84 Long term (current) use of oral hypoglycemic drugs; Z79.899 Other long term (current) drug therapy; Z85.3 Personal history of malignant neoplasm of breast
CPT/HCPCS: 19301; 10160; 88305; 88342; 88341; J2250; J0330; J1644; J0690; J2405; J2001; J3010; J2704; J2371; J0665

== ENCOUNTER 2024-03-14 13:35 | Emergency (ER) | payer MEDICARE ==
[2024-03-14 14:09] VITALS: TEMP 97.7
--- NOTE | 2024-03-14 14:11 | ED ---
Head Injury HPI - General Source: patient, RN notes reviewed Mode of arrival: wheelchair Limitations: no limitations <Erica Wallace - Last Filed: 03/14/24 14:08> <Mayo Hernandez - Last Filed: 03/14/24 16:50> - General Chief complaint: Head Injury Stated complaint: Fall, injury to L eye Time Seen by Provider: 03/14/24 13:49 - History of Present Illness Initial comments: Quick Note-this is a 58-year-old female presents emergency department chief complaint of a head injury. Patient states she was sitting at her dining room table when she fell hitting the left side of her forehead and high. She endorses of consciousness for a few moments, the fall was not witnessed. Denies use of blood thinners, chest pain or pressure, palpitations, dizziness, lightheadedness. (Erica Wallace) - Related Data Home Medications Medication Instructions Recorded Confirmed Dicyclomine [Bentyl] 20 mg PO BID 04/03/19 03/04/24 buPROPion XL [Wellbutrin XL] 300 mg PO QAM 04/03/19 03/04/24 metFORMIN HCL [Glucophage] 500 mg PO BID 04/03/19 03/04/24 sitaGLIPtin [Januvia] 100 mg PO QAM 04/03/19 03/04/24 Albuterol Inhaler [Ventolin Hfa 1 puff INHALATION DIRECTED PRN 01/24/23 03/04/24 Inhaler] Cariprazine HCl [Vraylar] 6 mg PO QAM 01/24/23 03/04/24 Nitroglycerin 0.4 mg PO DIRECTED PRN 01/24/23 03/04/24 Sertraline [Zoloft] 100 mg PO QAM 01/24/23 03/04/24 Tolterodine [Detrol] 4 mg PO QAM 01/24/23 03/04/24 lisinopriL [Zestril] 5 mg PO QAM 01/24/23 03/04/24 Gabapentin 400 mg PO QAM 02/14/24 03/04/24 Semaglutide [Ozempic] 2 mg SQ WE 02/14/24 03/04/24 Atorvastatin [Lipitor] 10 mg PO QAM 02/29/24 03/04/24 amLODIPine [Norvasc] 5 mg PO QAM 02/29/24 03/04/24 methocarbamoL 500 mg PO TID 02/29/24 03/04/24 Previous Rx's Medication Instructions Recorded Cephalexin [Keflex] 500 mg PO TID 1 Days #21 cap 03/04/24 traMADol HCl [Ultram] 50 mg PO Q6H PRN #6 tab 03/04/24 Allergies/Adverse reactions: Allergies Allergy/AdvReac Type Severity Reaction Status Date / Time Latex, Natural Rubber Allergy Anaphylaxis Verified 03/14/24 13:47 Review of Systems ROS Other: All systems not noted in ROS Statement are negative. <Erica Wallace - Last Filed: 03/14/24 14:08> ROS Other: All systems not noted in ROS Statement are negative. <Mayo Hernandez - Last Filed: 03/14/24 16:50> ROS Statement: Those systems with pertinent positive or pertinent negative responses have been documented in the HPI. Past Medical History Past Medical History: Cancer, COPD, Diabetes Mellitus, GERD/Reflux, Hyperlipidemia, Hypertension, Osteoarthritis (OA) Additional Past Medical History / Comment(s): NIDDM type II, neuropathy bilateral feet, diverticular disease, IBS, chronic low back pain, unable to walk over a block without a cane/walker, arthritis bilateral wrists/knees and ankles, Breast cancer right breast with surgery -2023 History of Any Multi-Drug Resistant Organisms: None Reported Past Surgical History: Breast Surgery, Hernia Repair, Hysterectomy, Orthopedic Surgery Additional Past Surgical History / Comment(s): 01/2024 R breast lumpectomy/ lymph nodes removed, R breast bx prior, lipoma removed from abdomen ,umbilical hernia repair, R knee arthroscopy, colonoscopy. Past Anesthesia/Blood Transfusion Reactions: No Reported Reaction Additional Past Anesthesia/Blood Transfusion Reaction / Comment(s): Pt has received blood in past without reaction with surgery Past Psychological History: Anxiety, Depression Smoking Status: Current every day smoker - Past Family History Father Family Medical History: Diabetes Mellitus Mother Additional Family Medical History / Comment(s): Mother of "broken heart". Daughter(s) Family Medical History: Blood Disorder Additional Family Medical History / Comment(s): Unknown name of blood disorder. <Erica Wallace - Last Filed: 03/14/24 14:08> General Exam Limitations: no limitations <Erica Wallace - Last Filed: 03/14/24 14:08> - General Exam Comments Initial Comments: Visual Physical Exam Vital signs reviewed General: Well-appearing, nontoxic, no acute distress. Head: Normocephalic, atraumatic Eyes: PERRLA, EOMI ENT: Airway patent Chest: Nonlabored breathing Skin: No visual rash, normal skin tone Neuro: Alert and oriented 3 Musculoskeletal: No gross abnormalities (Erica Wallace) Course Vital Signs 03/14/24 13:42 Temperature 97.7 F Pulse Rate 80 Respiratory 16 Rate Blood Pressure 143/84 O2 Sat by Pulse 97 Oximetry Medical Decision Making <Erica Wallace - Last Filed: 03/14/24 14:08> - Lab Data Result diagrams: 03/14/24 14:30 03/14/24 14:30 <Mayo Hernandez - Last Filed: 03/14/24 16:50> - Medical Decision Making I completed the quick note portion of this chart signed Erica Wallace PA-C (Erica Wallace) - Lab Data Lab Results 03/14/24 03/14/24 03/14/24 Range/Units 14:30 14:30 14:30 WBC 12.2 H (3.8-10.6) k/uL RBC 4.09 (3.80-5.40) m/uL Hgb 12.3 (11.4-16.0) gm/dL Hct 37.4 (34.0-46.0) % MCV 91.4 (80.0-100.0) fL MCH 30.1 (25.0-35.0) pg MCHC 33.0 (31.0-37.0) g/dL RDW 14.5 (11.5-15.5) % Plt Count 211 (150-450) k/uL MPV 9.8 Neutrophils % 79 % Lymphocytes % 13 % Monocytes % 4 % Eosinophils % 1 % Basophils % 1 % Neutrophils # 9.6 H (1.3-7.7) k/uL Lymphocytes # 1.6 (1.0-4.8) k/uL Monocytes # 0.4 (0-1.0) k/uL Eosinophils # 0.2 (0-0.7) k/uL Basophils # 0.1 (0-0.2) k/uL PT 10.3 (10.0-12.5) sec INR 0.9 (<1.2) APTT 24.5 (22.0-30.0) sec Sodium 138 (137-145) mmol/L Potassium 4.5 (3.5-5.1) mmol/L Chloride 106 (98-107) mmol/L Carbon Dioxide 24 (22-30) mmol/L Anion Gap 8 mmol/L BUN 15 (7-17) mg/dL Creatinine 1.07 H (0.52-1.04) mg/dL Est GFR (CKD-EPI)AfAm 66 (>60 ml/min/1.73 sqM) Est GFR (CKD-EPI)NonAf 57 (>60 ml/min/1.73 sqM) Glucose 112 H (74-99) mg/dL Calcium 9.5 (8.4-10.2) mg/dL Magnesium 1.9 (1.6-2.3) mg/dL Total Bilirubin 0.7 (0.2-1.3) mg/dL AST 29 (14-36) U/L ALT 25 (4-34) U/L Alkaline Phosphatase 107 (38-126) U/L Troponin I (0.000-0.034) ng/mL Total Protein 6.9 (6.3-8.2) g/dL Albumin 3.8 (3.5-5.0) g/dL 03/14/24 Range/Units 14:30 WBC (3.8-10.6) k/uL RBC (3.80-5.40) m/uL Hgb (11.4-16.0) gm/dL Hct (34.0-46.0) % MCV (80.0-100.0) fL MCH (25.0-35.0) pg MCHC (31.0-37.0) g/dL RDW (11.5-15.5) % Plt Count (150-450) k/uL MPV Neutrophils % % Lymphocytes % % Monocytes % % Eosinophils % % Basophils % % Neutrophils # (1.3-7.7) k/uL Lymphocytes # (1.0-4.8) k/uL Monocytes # (0-1.0) k/uL Eosinophils # (0-0.7) k/uL Basophils # (0-0.2) k/uL PT (10.0-12.5) sec INR (<1.2) APTT (22.0-30.0) sec Sodium (137-145) mmol/L Potassium (3.5-5.1) mmol/L Chloride (98-107) mmol/L Carbon Dioxide (22-30) mmol/L Anion Gap mmol/L BUN (7-17) mg/dL Creatinine (0.52-1.04) mg/dL Est GFR (CKD-EPI)AfAm (>60 ml/min/1.73 sqM) Est GFR (CKD-EPI)NonAf (>60 ml/min/1.73 sqM) Glucose (74-99) mg/dL Calcium (8.4-10.2) mg/dL Magnesium (1.6-2.3) mg/dL Total Bilirubin (0.2-1.3) mg/dL AST (14-36) U/L ALT (4-34) U/L Alkaline Phosphatase (38-126) U/L Troponin I <0.012 (0.000-0.034) ng/mL Total Protein (6.3-8.2) g/dL Albumin (3.5-5.0) g/dL Disposition <Erica Wallace - Last Filed: 03/14/24 14:08> Is patient prescribed a controlled substance at d/c from ED?: No Time of Disposition: 16:40 <Mayo Hernandez - Last Filed: 03/14/24 16:50> Clinical Impression: Closed head injury, Syncope, Left orbit fracture Disposition: HOME SELF-CARE Condition: Good Instructions (If sedation given, give patient instructions): Facial Fracture (ED), Syncope (ED) Referrals: Prashant Ward Jr, [Primary Care Provider] - 1-2 days Mayo Hernandez DDS [STAFF PHYSICIAN] - 1-2 days Jasper Cavazos DDS [STAFF PHYSICIAN] - 1-2 days
[2024-03-14 14:39] LABS: Basophils # (A) 0.1 k/uL (0-0.2); Basophils % (A) 1 %; Eosinophils # (A) 0.2 k/uL (0-0.7); Eosinophils % (A) 1 %; HCT 37.4 % (34.0-46.0); HGB 12.3 gm/dL (11.4-16.0); Lymphocytes # (A) 1.6 k/uL (1.0-4.8); Lymphocytes % (A) 13 %; MCH 30.1 pg (25.0-35.0); MCV 91.4 fL (80.0-100.0); Mean Platelet Volume 9.8; Monocytes # (A) 0.4 k/uL (0-1.0); Monocytes % (A) 4 %; Neutrophils # (A) 9.6 k/uL (1.3-7.7); Neutrophils % (A) 79 %; Platelet Count 211 k/uL (150-450); RBC 4.09 m/uL (3.80-5.40); RDW 14.5 % (11.5-15.5); WBC 12.2 k/uL (3.8-10.6)
[2024-03-14 14:49] LABS: Carbon Dioxide 24 mmol/L (22-30); Chloride 106 mmol/L (98-107); Glucose 112 mg/dL (74-99); Potassium 4.5 mmol/L (3.5-5.1); Sodium 138 mmol/L (137-145)
[2024-03-14 14:50] LABS: ALT 25 U/L (4-34); AST 29 U/L (14-36); African American GFR (CKD) 66 (>60 ml/min/1.73 sqM); Albumin 3.8 g/dL (3.5-5.0); Alkaline Phosphatase 107 U/L (38-126); Anion Gap 8 mmol/L; Blood Urea Nitrogen 15 mg/dL (7-17); Calcium 9.5 mg/dL (8.4-10.2); Magnesium 1.9 mg/dL (1.6-2.3); Non-African American GFR(CKD) 57 (>60 ml/min/1.73 sqM); Total Bilirubin 0.7 mg/dL (0.2-1.3); Total Protein 6.9 g/dL (6.3-8.2)
--- NOTE | 2024-03-14 14:58 | CT ---
EXAMINATION TYPE: CT brain wo con DATE OF EXAM: 03/14/2024 COMPARISON: None HISTORY: Fall CT DLP: mGycm Automated exposure control for dose reduction was used. Findings: The ventricles, basal cisterns and sulci over the convexities are within normal limits and there is n o mass effect or shift of midline structures. No abnormal density is seen throughout the brain parenchyma and there is no acute intra or extra-axia l hemorrhage. The posterior fossa including the brainstem, fourth ventricle and cerebellar pontine angles appear no rmal. Intraorbital contents appear normal and symmetric. There is an air-fluid level with hyperdense fluid in the left maxillary sinus consistent with acute h emorrhage. The calvarium is intact. IMPRESSION: No significant abnormality seen. There is no acute bleed or mass effect. Finding suggest acute hemorr ramirez in the left maxillary sinus.
--- NOTE | 2024-03-14 15:03 | CT ---
EXAMINATION TYPE: CT facial bones wo con DATE OF EXAM: 03/14/2024 COMPARISON: None HISTORY: Fall Automated exposure control for dose reduction was used. TECHNIQUE: CT scan of the sinuses is performed without contrast, axial images are obtained, coronal r eformatted images are also reviewed. Findings: There is a small blowout fracture involving the inferior orbital rim on the left. There is acute hemo rrhage in the left maxillary sinus. There is obstruction of the left ostiomeatal complex. There is no entrapment of the inferior rectus muscle on the left and the intraorbital contents are normal and sy mmetric. There is a nondisplaced fracture of the anterior wall of the left maxillary sinus as well. The mastoid air cells are well aerated. The remaining paranasal sinuses are well aerated. IMPRESSION: Blowout fracture of the inferior orbital wall on the left and minimally displaced fracture of the ant erior wall of the left maxillary sinus. Acute hemorrhage within the left maxillary sinus.
[2024-03-14 15:04] LABS: INR 0.9 (<1.2); Partial Thromboplastin Time 24.5 sec (22.0-30.0); Prothrombin Time 10.3 sec (10.0-12.5)
[2024-03-14 17:39] VITALS: BP 172/119; PULSE 71; RESP 18
== END 2024-03-14 17:32 | disposition home or self-care (01) ==
LOC: EC 13:35
DX: S02.85XA Fracture of orbit, unspecified, initial encounter for closed fracture (principal); S09.90XA Unspecified injury of head, initial encounter; F17.200 Nicotine dependence, unspecified, uncomplicated; Z91.040 Latex allergy status; W18.09XA Striking against other object with subsequent fall, initial encounter
CPT/HCPCS: 36415; 70450; 70486; 80053; 83735; 84484; 85025; 85610; 85730; 93005; 99284

== ENCOUNTER → 2024-03-25 | Outpatient (CLI) | payer MEDICARE | END | disposition home or self-care (01) | LOC: LABWHC1 12:29 | PROVIDERS: ATTEND Family Medicine | DX: E04.9 Nontoxic goiter, unspecified (principal) | CPT/HCPCS: 36415; 84443 ==

== ENCOUNTER → 2024-03-29 | Outpatient (CLI) | payer MEDICARE, OTHER ==
--- NOTE | 2024-04-06 18:29 | CT ---
EXAMINATION TYPE: CT chest wo con CT DLP: 1004 mGycm, Automated exposure control for dose reduction was used. DATE OF EXAM: 03/29/2024 12:26 PM COMPARISON: None CLINICAL INDICATION:Female, 58 years old with history of R05.3 CHRONIC COUGH F17.210 NICOTINE DEPEND ENCE,; PHH, chronic cough, cigarette smoker TECHNIQUE: Multiple axial images were obtained through the chest. Sagittal and coronal reformats were created for review. Contrast used: mL of (None if empty) Oral contrast used: (None if empty) FINDINGS: LUNGS/ PLEURA: No focal consolidation, pneumothorax or pleural fusion. Mild centrilobular emphysema. AIRWAY: Patent and unremarkable. No evidence for bronchial wall thickening or bronchiectasis. HEART: The heart is mildly enlarged for size. There is lipomatous hypertrophy of interatrial septum. Mild coronary artery calcifications. MEDIASTINUM: No gross evidence of adenopathy. VASCULATURE: No aortic aneurysm. MUSCULOSKELETAL: No acute osseous abnormalities SOFT TISSUES/LYMPH NODES: r postsurgical changes right breast with large suspected seroma measuring u p to 8.7 x 5.9 cm. Scattered surgical clips are present. LOWER NECK: No significant findings. UPPER ABDOMEN: Diffuse low-attenuation to the liver parenchyma. IMPRESSION: 1. No evidence for acute intrathoracic process. 2. Mild emphysema. 3. Postsurgical changes right breast with multiple surgical clips present and a seroma present.. 4. Hepatic steatosis. 5. Mild coronary artery atherosclerosis. Follow up recommendations for incidental pulmonary nodules, if there are any, are per [employer] or [employer].
== END | disposition home or self-care (01) ==
LOC: RADCTMAIN 11:52
PROVIDERS: ATTEND Family Medicine
DX: J43.9 Emphysema, unspecified (principal); N64.89 Other specified disorders of breast; K76.0 Fatty (change of) liver, not elsewhere classified; I25.10 Atherosclerotic heart disease of native coronary artery without angina pectoris; F17.210 Nicotine dependence, cigarettes, uncomplicated
CPT/HCPCS: 71250

== ENCOUNTER → 2024-10-18 | Outpatient (CLI) | payer MEDICARE ==
--- NOTE | 2024-10-18 12:54 | BD ---
EXAMINATION TYPE: Axial Bone Density DATE OF EXAM: 10/18/2024 CLINICAL HISTORY: 58 years old Female. ICD-10 CODE: M81.0 AGE RELATED OSTEO , Additional History: Height: 5 ft 4 1/2 in Weight: 278 FRAX RISK QUESTIONS: Alcohol (3 or more units per day): no Family History (Parent hip fracture): yes Glucocorticoids (More than 3mos): no (Ex: prednisone, prednisolone, methylprednisolone, dexamethasone, and hydrocortisone). History of Fracture in Adulthood: yes Secondary Osteoporosis: 1. Type 1 Diabetes: type 2 2. Hyperthyroidism: no 3. Menopause before 45: yes 4. Malnutrition: no 5. Chronic liver disease: no Rheumatoid Arthritis: no Current Tobacco Use: no RISK FACTORS HISTORY OF: Surgery to Spine/Hip(right/left)/Wrist (right/left): no MEDICATIONS: Thyroid Medications: none Osteoporosis Medications: none EXAM MEASUREMENTS: Bone mineral densitometry was performed using the [employer] System. Bone mineral density as measured about the Lumbar spine is: ----- L1-L4(G/cm2): 1.308 T Score Values are as follows: ----- L1: 1.3 ----- L2: 0.3 ----- L3: 0.8 ----- L4: 1.6 ----- L1-L4: 1.1 Z Score Values are as follows: ----- L1: 1.3 ----- L2: 0.3 ----- L3: 0.8 ----- L4: 1.6 ----- L1-L4: 1.1 baseline Bone mineral density about the R hip (g/cm2): 0.868 Bone mineral density about the L hip (g/cm2): 0.807 T Score values are as follows: -----R Neck: -1.2 -----L Neck: -1.7 -----R Total: -0.2 -----L Total: 0.0 Z Score values are as follows: -----R Neck: -0.8 -----L Neck: -1.2 -----R Total: -0.1 -----L Total: 0.1 baseline FRAX%s: The graph provided illustrates a 12.2 % chance for a major osteoporotic fx and a 1.1 % chance for the hips probability for fx in 10 years time. IMPRESSION: Osteopenia (T Score between -2.5 and -1). There is slightly increased risk of fracture and the patient may be considered for treatment. Re-Screen 2-5 years. NOTE: T-SCORE=SD OF THE YOUNG ADULT MEAN. [facility], , 10/18/2024 12:52 PM
== END | disposition home or self-care (01) ==
LOC: RADBDWWP 11:29
PROVIDERS: ATTEND Internal Medicine
DX: C50.311 Malignant neoplasm of lower-inner quadrant of right female breast (principal); M85.89 Other specified disorders of bone density and structure, multiple sites; F32.A Depression, unspecified; E11.9 Type 2 diabetes mellitus without complications; C50.919 Malignant neoplasm of unspecified site of unspecified female breast
CPT/HCPCS: 77080

== ENCOUNTER → 2025-01-09 | Outpatient (CLI) | payer MEDICARE ==
--- NOTE | 2025-01-09 10:14 | MM ---
Reason for Exam: Hx of breast cancer, conservation therapy. Last mammogram was performed 1 year(s) and 1 month(s) ago. Patient History: Menarche at age 11. First Full-Term at age 19. Left ovary removed at age 27. Right ovary removed at age 27. Hysterectomy at age 27. Postmenopausal. Patient has history of breast feeding. Breast cancer, right, age 58. Breast cancer, right, age 58. 02/19/2024, Lumpectomy on the Right side. 02/16/2024, US breast surgical speciment RT on the Right side. 02/16/2024, Malignant US breast localization RT on the right side. 01/30/2024, Benign US biopsy breast VAD RT on the right side. 01/03/2024, Malignant US biopsy breast VAD RT on the right side. Prior Study Comparison: 12/27/2023 Right US breast workup limited RT, [facility]. 01/03/2024 Right MG diagnostic mammo RT wo CAD, [facility]. 01/25/2024 Right MG 3D diag mammo w/cad RT, [facility]. 01/25/2024 Right US breast axilla RT, [facility]. 02/16/2024 Right MG diagnostic mammo RT wo CAD, [facility]. Tissue Density: There are scattered areas of fibroglandular density. Findings: Analyzed By CAD. Asymmetric skin thickening with increased density and surgical clips posteriorly in the right breast consistent with interval posttreatment change are now present presumed new baseline. No suspicious new mass or worrisome cluster of microcalcification the left breast. Overall Assessment: Probably benign, BI-RAD 3 Management: Diagnostic Mammogram of the right breast in 6 months. Precautionary short-term follow-up right breast mammogram. Establishing new baseline. Results were given to the patient verbally at the time of exam. Patient should continue monthly self-breast exams. A clinical breast exam by your physician is recommended on an annual basis. This exam should not preclude additional follow-up of suspicious palpable abnormalities. Note on Melony scores and lifetime risk: 1. A Melony score greater than 3% is considered moderate risk. If this is the case, consider specialist referral to assess eligibility for a risk reducing agent. 2. If overall lifetime risk for the development of breast cancer is 20% or higher, the patient may qualify for future screening with alternating mammogram and breast MRI. [facility], , 01/09/2025 10:11 AM. Electronically signed and approved by: Onesimo An M.D.
== END | disposition home or self-care (01) ==
LOC: RADMAMWWP 09:21
PROVIDERS: ATTEND Surgery
DX: R92.323 Mammographic fibroglandular density, bilateral breasts (principal); Z85.3 Personal history of malignant neoplasm of breast; Z78.0 Asymptomatic menopausal state
CPT/HCPCS: 77066; G0279; 77062

== ENCOUNTER → 2025-02-05 | Outpatient (CLI) | payer MEDICARE ==
--- NOTE | 2025-02-05 08:40 | USB ---
Reason for Exam: Clinical finding. Patient History: Menarche at age 11. First Full-Term at age 19. Left ovary removed at age 27. Right ovary removed at age 27. Hysterectomy at age 27. Postmenopausal. Patient has history of breast feeding. Breast cancer, right, age 58. Breast cancer, right, age 58. 02/19/2024, Lumpectomy on the Right side. 02/16/2024, US breast surgical speciment RT on the Right side. 02/16/2024, Malignant US breast localization RT on the right side. 01/30/2024, Benign US biopsy breast VAD RT on the right side. 01/03/2024, Malignant US biopsy breast VAD RT on the right side. Technique: Method: Targeted. Prior Study Comparison: 01/25/2024 Right MG 3D diag mammo w/cad RT, [facility]. 02/16/2024 Right MG diagnostic mammo RT wo CAD, [facility]. 01/09/2025 Bilateral MG 3D diag mammo w/cad TASHA, [facility]. Findings: The axilla of the right breast was scanned. Ultrasound of the right axilla was performed. A normal-appearing lymph node is identified with cortical thickness of 1 mm. No suspicious masses seen within the imaged field. Overall Assessment: Benign, BI-RAD 2 Management: Diagnostic Mammogram of both breasts in 11 months. A clinical breast exam by your physician is recommended on an annual basis and results should be correlated with mammographic findings. This exam should not preclude additional follow-up of suspicious palpable abnormalities. Results were given to the patient verbally at the time of exam. [facility], , 02/05/2025 8:39 AM. Electronically signed and approved by: Brannon Esteves M.D. [facility]
== END | disposition home or self-care (01) ==
LOC: RADUSWWP 08:08
PROVIDERS: ATTEND Surgery
DX: R22.9 Localized swelling, mass and lump, unspecified (principal); Z85.3 Personal history of malignant neoplasm of breast; Z78.0 Asymptomatic menopausal state